=== PATIENT | male | born 1985 | race Two or more races ===

== ENCOUNTER 2025-06-10 19:56 | Emergency (ER) | payer BC ==
[~2025-06-10] VITALS: Ht 180.3 cm; Wt 104.3 kg
[2025-06-10 21:46] LABS: PLATELET COUNT (AUTO) 235 K/uL (150-450); RED BLOOD CELL COUNT(AUTO) 4.98 MIL/uL (4.5-6.0); RED CELL DISTRIBUTION WIDTH 13.9 % (11.5-15.0); WHITE BLOOD COUNT (AUTO) 11.9 K/uL (4.3-11.0)
[2025-06-10 21:55] LABS: CALCIUM, SERUM 8.6 mg/dL (8.5-10.1); CREATININE 0.8 mg/dL (0.6-1.3); SODIUM SERUM 141 mmol/L (136-145); UREA NITROGEN, BLOOD 17 mg/dL (7-18)
[2025-06-10 22:06] LABS: ASPARTATE AMINOTRANSFERASE 13 U/L (15-37); NT-PRO BNP 54 pg/mL (0-125); TOTAL PROTEIN, SERUM 7.0 g/dL (6.4-8.2)
[2025-06-10 22:27] VITALS: BP 137/92; TEMP 98.5; O2SAT 98
== END 2025-06-10 22:28 | disposition home or self-care (01) ==
LOC: ER 20:03
DX: R06.02 Shortness of breath (principal)
CPT/HCPCS: 36415; 71045-TC; 80048-TC; 80076-TC; 83880; 84484-TC; 85025-TC